=== PATIENT | male | born 2000 | race African-American/Black ===

== ENCOUNTER 2021-10-07 12:06 | Emergency (ER) | payer MEDICAID ==
[~2021-10-07] VITALS: Ht 193 cm; Wt 91.0 kg
[2021-10-07 12:46] VITALS: BP 108/44
[2021-10-07] MEDS ORDERED: IBUPROFEN 800MG TABLET PO ONE (14:30)
== END 2021-10-07 15:35 | disposition left against medical advice (07) ==
LOC: ER 12:06
DX: S61.412A Laceration without foreign body of left hand, initial encounter (principal); S60.222A Contusion of left hand, initial encounter; W25.XXXA Contact with sharp glass, initial encounter; Y93.E9 Activity, other interior property and clothing maintenance; Y92.017 Garden or yard in single-family (private) house as the place of occurrence of the external cause
CPT/HCPCS: 99281